=== PATIENT | male | born 1990 | race Caucasian/White ===

== ENCOUNTER 2021-05-25 13:35 | Emergency (ER) | payer BC ==
[2021-05-25] MEDS ORDERED: Ketorolac Tromethamine 30 MG/ML VIAL ONE (15:10)
[2021-05-25] MEDS ORDERED: Acetaminophen 500 MG TAB ONE (15:10)
[2021-05-25 15:23] LABS: #Monocytes 0.2 10x3/uL (0.0-1.1); #Neutrophils 3.7 10x3/uL (1.5-8.4); %Basophils 0.2 % (0.0-2.0); %Lymphocytes 17.5 % (18.0-47.0); %Monocytes 4.6 % (0.0-10.0); %Neutrophils 77.1 % (40.0-75.0); Hemoglobin 14.9 g/dL (13.5-17.5); Mean Corpuscular HGB CONC 35.8 g/dL (32.0-36.0); Mean Corpuscular Hemoglobin 29.9 pg (27.0-33.0); Mean Corpuscular Volume 83.4 fl (81.2-95.1); Mean Platelet Volume 9.9 fl (7.4-10.4); Platelet Count 188 10x3/uL (150-450); RBC Distribution Width 12.2 % (11.5-14.5); Red Blood Cell (RBC) Count 4.99 10x6/uL (4.32-5.72); White Blood Cell (WBC) Count 4.8 10x3/uL (3.5-10.5)
[2021-05-25 15:47] LABS: ALT (SGPT) 131 U/L (8-55); AST (SGOT) 116 U/L (5-34); Albumin 4.4 g/dL (3.5-5.0); Alkaline Phosphatase 51 U/L (40-110); Anion Gap 15 mmol/L (10-20); BUN (Urea Nitrogen) 8 mg/dL (8.9-20.6); Bilirubin, Total 0.6 mg/dL (0.2-1.2); Calc. Creatinine Clearance 0 mL/min (70-130); Carbon Dioxide 26 mmol/L (22-29); Chloride 100 mmol/L (98-107); Globulin 2.6 g/dL (2.4-3.5); Glucose 94 mg/dL (70-105); Potassium 3.7 mmol/L (3.5-5.1); Sodium 137 mmol/L (136-145)
[2021-05-25] MEDS ORDERED: Ventolin HFA Inhaler 60 PUFF INHALER ONE (16:42)
[2021-05-25] MEDS ORDERED: Dexamethasone 10 MG/ML VIAL ONE (16:42)
== END 2021-05-25 17:47 | disposition home or self-care (01) ==
LOC: CSHERS 13:35
DX: U07.1 COVID-19 (principal)
CPT/HCPCS: 71045; 71275; 80053; 84484; 85025; 85379; 93005; 96372; 96374; J1100; J1885